=== PATIENT | male | born 1950 | race Caucasian/White ===

== ENCOUNTER 2016-11-01 14:29 | Inpatient (IN) | payer MEDICARE, OTHER ==
[~2016-11-01] VITALS: Ht 174 cm; Wt 98.7 kg
[~2016-11-01 14:29] MED LIST: ASPIRIN E.C. 8181 MG PO; DEXAMETHASONE 4 MG PO; FLUOROPLEX1% TP; FUROCOT20 MG PO; MOTRIN 200200 MG/TAB PO; NORCO 325 MG-51 TAB PO; PEPCID 20MG TAB20 MG PO; TYLENOL PM EXTR1 TA1 PO; ULTRAM 50MG TAB50 MG PO; ZOFRAN 4MG T4 MG/TAB PO
[2016-11-23] VITALS (9 sets, daily range): BP systolic 115–147; BP diastolic 70–127; PULSE 57–87; TEMP 98.7
[2016-11-23] MEDS ORDERED: TYLENOL 325MG325 MG PO (11:26)
[2016-11-23] MEDS ORDERED: FLAGYL500 MG PO (11:27)
[2016-11-23] MEDS ORDERED: NEOMYCIN S500 MG/TAB PO (11:28)
[2016-11-23 12:19] LABS: BASO % 0.6 % (0.0-2.0); EOS # 0.1 (0.0-0.7); EOS % 1.9 % (0-4.0); GRAN % 69.6 % (42.2-75.2); HEMATOCRIT 41.6 % (42.0-52.0); HEMOGLOBIN 14.2 g/dl (13.5-18.0); LYMPH # 1.2 (1.2-3.4); MEAN CELL VOLUME 90 fl (80.0-100.0); MEAN CORPUSCULAR HEMOGLOBIN 31 pg (27.0-31.0); MEAN CORPUSCULAR HGB CONC 34 g/dl (33.0-37.0); MEAN PLATELET VOLUME 8.7 fl (7.4-10.4); MONO # 0.8 (0.1-0.6); MONO % 10.8 % (1.7-9.3); PLATELET COUNT 292 K/mm3 (130-400); RED BLOOD COUNT 4.64 M/mm3 (4.20-5.60)
[2016-11-23 12:23] LABS: ALBUMIN 4.4 gm/dL (3.5-5.0); BILIRUBIN,TOTAL 0.6 mg/dL (0.0-1.0); CALCIUM 9.2 mg/dL (8.4-10.2); CREATININE, serum 0.74 mg/dL (0.66-1.25); POTASSIUM 4.4 mmol/L (3.4-5.0); TOTAL PROTEIN 7.5 gm/dL (6.4-8.2)
--- NOTE | 2016-11-24 01:08 | NUR ---
RESUMED CARE OF PATIENT. UP FROM SURGERY AT 1900. A&O. TOLENTINO TO DD WITH CLEAR, YELLOW OUTPUT. DENIES PAIN AT THIS TIME. IVF RUNNING. VSS WITH BP A LITTLE HIGH. TOLERATING CLEAR LIQUIDS, NO NAUSEA. PATIENT HAS NO OTHER COMPLAINTS AT THIS TIME. CALL LIGHT WITHIN REACH. WILL CONTINUE TO MONITOR.
[2016-11-24 02:29] VITALS: BP 118/75; PULSE 87; TEMP 98.2
--- NOTE | 2016-11-24 05:18 | NUR ---
PATIENT HAD UNEVENTFUL NIGHT. NO COMPLAINTS OF PAIN. GAVE SHEDULED TYLENOL OVER NIGHT. VSS. TOLENTINO STILL TO DD. NO OTHER COMPLAINTS AT THIS TIME. CALL LIGHT WITHIN REACH. WILL GIVE REPORT TO DAY SHIFT NURSE.
[2016-11-24 06:14] LABS: HEMATOCRIT 39.7 % (42.0-52.0); HEMOGLOBIN 13.1 g/dl (13.5-18.0)
[2016-11-24 06:24] VITALS: BP 123/76; PULSE 65; TEMP 98
[2016-11-24 06:26] LABS: CALCIUM 8.7 mg/dL (8.4-10.2); CREATININE, serum 0.79 mg/dL (0.66-1.25); MAGNESIUM 1.9 mg/dL (1.6-2.3); PHOSPHOROUS 3.9 mg/dL (2.5-4.5); POTASSIUM 4.5 mmol/L (3.4-5.0)
--- NOTE | 2016-11-24 09:27 | NUR ---
PATIENT SITTING UP IN THE CHAIR. DR. ACHARYA ROUNDED THIS AM. ORDER RECEVIED. IV TO INT. BREAKFAST ORDERED HE HAD A WHITE PIECE OF TOAST & SMALL AMOUNT OF EGGS. NO N/V. BOWELS ACTIVE. HE REPORTS HAVING BM. TOLENTINO DC & VOIDED SMALL AMOUNT AFTER. ACTIVITY ENCOURGAED. LAP SITE X5 OPEN TO AIR. HIS AT BEDSIDE. WILL CONTINUE TO [facility].
[2016-11-24 09:35] VITALS: BP 140/79; PULSE 68; TEMP 98.2
--- NOTE | 2016-11-24 09:50 | NUR ---
Initial visit; Patient thanked Decker Operator for introducing herself and offering God's blessings. Patient declined spiritual care at this time.
--- NOTE | 2016-11-24 12:17 | NUR ---
Nurse immigration case manager discussed discharge needs with patient. Patient states he lives with his in a home. He is independent in activities of daily living and does not receive or need home health services. Patient has no problems obtaining needed medications. His primary care physician is Dr. Tulio Miles in [place]. Patient unsure of discharge date but knows to have turn out worker or immigration case manager notified if discharge needs are identified later.
[2016-11-24 13:53] VITALS: BP 140/80; PULSE 72; TEMP 98.3
[2016-11-24 17:33] VITALS: BP 142/83; PULSE 73; TEMP 97.5
--- NOTE | 2016-11-24 19:10 | NUR ---
PATIENT HAS BEEN INDEPENDENT. AMBULATING THE HALLS. EATING. NO N/V. PASSING GAS. VOIDING. MINMAL NEEDS. THANKFUL FOR CARE. BEDSIDE REPORT TO BONNIE MARTÍNEZ
[2016-11-24 20:35] VITALS: BP 142/79; PULSE 74; TEMP 98.7
--- NOTE | 2016-11-24 22:03 | NUR ---
RESUMED CARE OF PATIENT. TOLENTINO OUT TODAY. BEEN VOIDING FINE SINCE. LOW FIBER DIET, BOWEL SOUNDS ACTIVE. INT. PAIN CONTROLLED WITH TYLENOL. SOME BRUISING AND SWELLING AROUND ONE OF THE LAP SITES. PATIENT HAS NO OTHER COMPLAINTS AT THIS TIME. CALL LIGHT WITHIN REACH. WILL CONTINUE TO MONITOR.
--- NOTE | 2016-11-24 23:11 | NUR ---
REPORT GIVEN TO BONNIE MIRZA WHO WILL BE TAKING OVER PATIENT'S CARE AT THIS TIME.
--- NOTE | 2016-11-25 00:17 | NUR ---
GOT SHIFT REPORT FROM BONNIE MARTÍNEZ. PATIENT IS CURRENTLY SLEEPING.
[2016-11-25 05:17] VITALS: BP 127/87; PULSE 76; TEMP 98.1
--- NOTE | 2016-11-25 07:15 | NUR ---
PATIENT IS A&O. VSS. DENIES PAIN. NOTED ABDOMINAL LAP SITES X5 AND LESLI. DISTAL SUPER PUBIC LAP SITE NOTED ECCYMOSIS & LOTS OF SWELLING. SURGEON NOTIFIED. HOLDING AM DOSE OF LOVENOX. BOWL SOUNDS PRESENT X4 QUADS. NO C/O N/V. IV TO INT. PATIENT IS PASSING GAS AND HAD A BM THIS AM. PATIENT IS ON A LOW FIBER DIET. INDEPENDENT IN ROOM. HEAD TO TOE ASSESSMENT COMPLETE. NO NEEDS. CALL LIGHT IN REACH.
--- NOTE | 2016-11-25 07:41 | NUR ---
PATIENT HAD LITTLE TO NO PAIN, TYLENOL HELPS. 5 LAP SITES WERE CDI WITH NO BANDAGES. THE RIGHT LONGER SITE IS BRUISED AND PRETTY SWOLLEN. I HELD LOVENOX UNTIL THE DOCTOR SEES HIM THIS AM, I VERIFIED WITH BONNIE ROMO FOR A SECOND EYE AND LOOK. PATIENT HAS GOOD OUTPUT AND IS AMBULATORY. GAVE BEDSIDE SHIFT REPORT TO BONNIE ROMO.
[2016-11-25 08:57] VITALS: BP 142/79; PULSE 78; TEMP 98.5
--- NOTE | 2016-11-25 10:12 | NUR ---
AT BEDSIDE ROUNDING. SEE ORDERS.
--- NOTE | 2016-11-25 13:55 | NUR ---
PATIENT READY FOR DISCHARGE. REVIEWED DISCHARGE PAPERWORK WITH PATIENT & HIS . SCRIPT FOR [facility]CO SENT WITH PATIENT. WE REVIEWED MEDICATION LIST. FOLLOW UP APPT SCHEDULED. ACTIVITY & DIET REVIEWED. INCICSION & INCISION CARE DISCUSSED. DENIES QUESTIONS OR CONCERNS. PATIENT AMBULATED OUT WITH ALL BELONGINGS. HIS TAKING HIM HOME.
== END 2016-11-25 13:45 | disposition home or self-care (01) | DRG 331 ==
LOC: SURG 11-08 14:00 → INPTSU 11-23 11:03 → SURG 11-23 11:03
PROVIDERS: ADMIT Surgery
PROC: 8E0W4CZ Robotic Assisted Procedure of Trunk Region, Percutaneous Endoscopic Approach (ICD-10-PCS; 2016-11-23)
PROC: 0DTN4ZZ Resection of Sigmoid Colon, Percutaneous Endoscopic Approach (ICD-10-PCS; principal; 2016-11-23 14:00)
DX: K57.33 Diverticulitis of large intestine without perforation or abscess with bleeding (principal)
CPT/HCPCS: A4315; A9284; J0690; J1100; J1650; J2405; J2704; J2765; J3010; J7120

== ENCOUNTER → 2016-12-15 | Outpatient (CLI) | payer MEDICARE, OTHER ==
[~2016-12-15] MED LIST changes: +FLAGYL500 MG PO; +NEOMYCIN S500 MG/TAB PO; +TYLENOL 325MG325 MG PO
== END ==
LOC: ZCOL.LAB 16:42
DX: K57.33 Diverticulitis of large intestine without perforation or abscess with bleeding (principal)

== ENCOUNTER 2017-10-24 07:09 | Day surgery (SDC) | payer MEDICARE, OTHER ==
[~2017-10-24] VITALS: Ht 172.7 cm; Wt 101.2 kg
[2017-10-24 07:24] VITALS: BP 138/88; PULSE 72; TEMP 98.5
[2017-10-24 08:40] VITALS: BP 128/93; PULSE 73; TEMP 97.7
[2017-10-24 08:55] VITALS: BP 125/98; PULSE 74
[2017-10-24] MEDS ORDERED: PRILOSEC 20MG20 MG PO (08:55)
[2017-10-24 09:10] VITALS: BP 121/81; PULSE 66
== END 2017-10-24 09:20 | disposition home or self-care (01) ==
LOC: SDCO 07:09
DX: K29.30 Chronic superficial gastritis without bleeding (principal); K44.9 Diaphragmatic hernia without obstruction or gangrene; M19.90 Unspecified osteoarthritis, unspecified site; K21.9 Gastro-esophageal reflux disease without esophagitis; E78.5 Hyperlipidemia, unspecified; L57.0 Actinic keratosis; I10 Essential (primary) hypertension; N52.9 Male erectile dysfunction, unspecified; R68.81 Early satiety; Z79.82 Long term (current) use of aspirin; Z98.52 Vasectomy status; Z96.659 Presence of unspecified artificial knee joint; Z80.42 Family history of malignant neoplasm of prostate; Z80.6 Family history of leukemia
CPT/HCPCS: OP; J2250; J3010; J7030

== ENCOUNTER → 2023-06-29 | Outpatient (CLI) | payer MEDICARE ==
[~2023-06-29] VITALS: Ht 172.7 cm; Wt 95.0 kg
[2023-06-29] VITALS (11 sets, daily range): BP systolic 119–144; BP diastolic 72–93; PULSE 66–75; TEMP 98.3
[~2023-06-29] MED LIST changes: +CARAFATE 1GM1 G PO; +Midazolam 2 MG/2 ML VIAL IV SCH; +PRILOSEC 20MG20 MG PO; +PROTONIX 40MG T40 MG PO; +WELLBUTRIN SR150 M1 PO; +fentaNYL 50 MCG/ML 2 ML VIAL IV SCH
--- NOTE | 2023-06-29 14:06 | NUR ---
Pt to ct per ambulation. Pt placed on ct table in supine position. Monitors applied and O2 on at 2l/nc.
--- NOTE | 2023-06-29 14:33 | NUR ---
Specimens obtained by Dr Perdue and placed in formalin and RPMI. Specimens labeled.
== END ==
LOC: COL.RAD 12:59
DX: R19.00 Intra-abdominal and pelvic swelling, mass and lump, unspecified site (principal)
CPT/HCPCS: J2250; J3010

== ENCOUNTER → 2023-07-17 | Outpatient (CLI) | payer MEDICARE, OTHER ==
[~2023-07-17] MED LIST changes: +IRON TABLETS325 MG PO; -Midazolam 2 MG/2 ML VIAL IV SCH; +WELLBUTRIN XL150 MG PO; -fentaNYL 50 MCG/ML 2 ML VIAL IV SCH
== END ==
LOC: COL.VAS 09:14
DX: C83.39 Diffuse large B-cell lymphoma, extranodal and solid organ sites (principal)

== ENCOUNTER 2023-07-19 09:33 | Day surgery (SDC) | payer MEDICARE, OTHER ==
[~2023-07-19] VITALS: Ht 172.7 cm; Wt 96.0 kg
[~2023-07-19 09:33] MED LIST changes: -IRON TABLETS325 MG PO; +LR 1,000 ML IV SCH; -WELLBUTRIN XL150 MG PO
[2023-07-19] MEDS ORDERED: WELLBUTRIN XL150 MG PO (10:56)
[2023-07-19] MEDS ORDERED: IRON TABLETS325 MG PO (10:58)
[2023-07-19] MEDS ORDERED: fentaNYL 50 MCG/ML 2 ML VIAL ONE (11:04)
[2023-07-19] MEDS ORDERED: Glycopyrrolate 0.2 MG/ML 1 ML VIAL ONE (11:05)
[2023-07-19] MEDS ORDERED: NS 10 ML IV ONE (11:05)
[2023-07-19] MEDS ORDERED: Lidocaine PF 2% (20 MG/ML) 5 ML VIAL ONE (11:05)
[2023-07-19 11:06] VITALS: BP 116/79; PULSE 81; TEMP 98.1
--- NOTE | 2023-07-19 11:12 | NUR ---
PATIENT ADMITTED TO ROOM 4 AMBULATORY ACCOMPANIED BY SPOUSE. ORIENTED TO ROOM AND CONSENTS SIGNED. VOICES UNDERSTANDING OF SURGERY AND ANESTHESIA. READIED FOR SURGERY.
[2023-07-19] MEDS ORDERED: Topical Skin Adhesive 1 EACH (1 ML) TOP ONE (11:30)
[2023-07-19 11:54] VITALS: BP 110/72; PULSE 88
--- NOTE | 2023-07-19 11:54 | NUR ---
PATIENT RETURNS TO ROOM 4 PER CART ACCOMPANIED BY TEMITOPE NICOLE AND ANKIT Alcantar CRNA. AWAKE AND ALERT. IVF INFUSING. SIDERAILS UP X2. LEFT PORT SITE NOTED WITH TWO INCISIONAL SITES COVERED WITH SKIN GLUE. WOUND EDGES WELL APPROXIMATED. SPOUSE IN ROOM. TAKING APPLE JUICE. CALL LIGHT IN REACH.
[2023-07-19 12:14] VITALS: BP 120/78; PULSE 87
--- NOTE | 2023-07-19 12:14 | NUR ---
TALKING WITH SPOUSE. DENIES ANY PAIN OR NAUSEA. TOLERATED JUICE.
[2023-07-19] MEDS ORDERED: Acetaminophen 325 MG TAB PO PRN (12:15)
[2023-07-19] MEDS ORDERED: Ibuprofen 600 MG TAB PO PRN (12:15)
[2023-07-19] MEDS ORDERED: Ondansetron 4 MG/2 ML VIAL IV PRN (12:15)
--- NOTE | 2023-07-19 12:23 | NUR ---
IV DISCONTINUED AND SITE IS FREE OF REDNESS. DRESSING SELF. PORT A CATH INSERTION SITES DRY AND NO SWELLING NOTED.
--- NOTE | 2023-07-19 12:45 | NUR ---
PATIENT GIVEN DISCHARGE INSTRUCTIONS AND VOICES UNDERSTANDING OF THESE. PROVIDED HANDOUT ON PORT A CATH AND BRACELET.
--- NOTE | 2023-07-19 12:53 | NUR ---
PATIENT TAKEN TO PRIVATE VEHICLE PER WHEELCHAIR AND ASSISTED INTO CAR WITH INSTRUCTIONS IN HAND.
[2023-07-19] MEDS ORDERED: NORCO 325 MG-51 TAB PO (16:11)
== END 2023-07-19 12:53 | disposition home or self-care (01) ==
LOC: SDCO 09:33
DX: C83.33 Diffuse large B-cell lymphoma, intra-abdominal lymph nodes (principal); G47.33 Obstructive sleep apnea (adult) (pediatric); Z85.828 Personal history of other malignant neoplasm of skin; K21.9 Gastro-esophageal reflux disease without esophagitis
CPT/HCPCS: C1788; J0690; J1644; J2704; J3010; J7120

== ENCOUNTER → 2023-12-25 | Outpatient (REF) | payer MEDICARE, OTHER ==
[~2023-12-25] MED LIST changes: +IRON TABLETS325 MG PO; -LR 1,000 ML IV SCH; +WELLBUTRIN XL150 MG PO
[2023-12-25 21:49] LABS: EOSINOPHIL 2 % (0-4); LYMPHOCYTE 32 % (20.0-51.0); NEUTROPHILS 41 % (42.0-75.2)
[2023-12-25 21:50] LABS: PLATELET ESTIMATE NORMAL (NORMAL)
== END ==
LOC: ZCOL.LAB 20:34
PROVIDERS: Family Medicine
DX: C83.390 Primary central nervous system lymphoma (principal)